=== PATIENT | female | born 1935 | race Caucasian/White ===

== ENCOUNTER 2016-11-08 07:55 | Emergency (ER) | payer MEDICARE, OTHER | END 2016-11-08 09:32 | disposition home or self-care (01) | LOC: ER 07:55 | DX: J06.9 Acute upper respiratory infection, unspecified (principal); R05 Cough; J02.9 Acute pharyngitis, unspecified; I48.91 Unspecified atrial fibrillation; Z79.01 Long term (current) use of anticoagulants; Z79.899 Other long term (current) drug therapy; Z88.0 Allergy status to penicillin; Z88.1 Allergy status to other antibiotic agents; Z88.6 Allergy status to analgesic agent | CPT/HCPCS: 87400; 99283 ==

== ENCOUNTER 2017-01-29 20:03 | Emergency (ER) | payer MEDICARE, OTHER | END 2017-01-29 21:31 | disposition home or self-care (01) | LOC: ER 20:03 | PROC: 3E0234Z Introduction of Serum, Toxoid and Vaccine into Muscle, Percutaneous Approach (ICD-10-PCS; principal; 2017-01-29) | DX: T63.441A Toxic effect of venom of bees, accidental (unintentional), initial encounter (principal); R21 Rash and other nonspecific skin eruption; I48.91 Unspecified atrial fibrillation; I10 Essential (primary) hypertension; Z88.1 Allergy status to other antibiotic agents; Z88.6 Allergy status to analgesic agent; Z79.899 Other long term (current) drug therapy; Z88.0 Allergy status to penicillin; Z23 Encounter for immunization | CPT/HCPCS: 90471; 90714; 99282-25; 99283 ==